=== PATIENT | female | born 1950 | race Caucasian/White ===

== ENCOUNTER → 2020-06-08 15:13 | Outpatient (BNVA) | payer MEDICARE, MEDICAID, SELFPAY | PROVIDERS: PCP Internal Medicine; Visit Provider Urology | DX: M54.5 Low back pain (principal); N20.0 Calculus of kidney | CPT/HCPCS: 81002; 99212 ==

== ENCOUNTER 2020-10-11 16:59 | Outpatient (REF) | payer MEDICARE, MEDICAID, SELFPAY ==
[2020-10-11 17:55] LABS: Hematocrit 44.2 % (37-47); Hemoglobin 14.4 g/dl (12.0-16.0); Mean Corpuscular HGB Conc 32.6 g/dl (31.0-35.0); Mean Corpuscular Volume 85.8 fL (80-98); Mean Platelet Volume 9.6 fL (9.4-12.3); Platelet Count 310 X10*3/uL (160-400); Red Blood Count 5.15 X10*6/uL (4.20-5.50); Red Cell Distribution Width 13.2 % (11.0-16.0); White Blood Count 9.6 X10*3/uL (4.8-10.8)
[2020-10-11 18:12] LABS: C Reactive Protein 0.29 mg/dL (< or = 0.50); Rheumatoid Factor < 15.0 IU/mL (<15.0)
[2020-10-11 19:04] LABS: Erythrocyte Sedimentation Rate 28 MM/HR (0-20)
[2020-10-15 15:16] LABS: Anti Nuclear Antibody Pattern Nuclear, Homogeneous; Anti Nuclear Antibody Screen POSITIVE (NEGATIVE)
[2020-10-16 08:11] LABS: Angiotensin Converting Enzyme 14 U/L (9-67)
[2020-10-18 06:27] LABS: Treponema pallidum Ab FTA ABS Nonreactive (Nonreactive)
== END 2020-10-11 17:00 | disposition home or self-care (01) ==
LOC: HO.LAB 16:59
PROVIDERS: PCP Internal Medicine; Visit Provider Ophthalmology
DX: H20.9 Unspecified iridocyclitis (principal)
CPT/HCPCS: 36415; 82164; 85027; 85652; 86038; 86039; 86140; 86431; 86780

== ENCOUNTER 2020-10-13 12:01 | Outpatient (REF) | payer MEDICARE, MEDICAID, SELFPAY ==
[2020-10-13 12:52] LABS: MANUAL DIFF FLAG NO
[2020-10-13 12:53] LABS: Basophils Percent Auto 0.4 % (0-2); Eosinophils Absolute Auto 0.1 X10*3/uL (0.0-0.4); Eosinophils Percent Auto 1.7 % (0-4); Hematocrit 41.2 % (37-47); Hemoglobin 13.3 g/dl (12.0-16.0); Imm Gran Abs Auto 0.03 X10*3/uL (0.00-0.03); Imm Gran Pct Auto 0.4 % (0.0-0.4); Lymphocytes Absolute Auto 2.1 X10*3/uL (1.2-4.9); Lymphocytes Percent Auto 27.5 % (20-40); Mean Corpuscular HGB Conc 32.3 g/dl (31.0-35.0); Mean Corpuscular Hemoglobin 27.9 pg (27.0-33.0); Mean Corpuscular Volume 86.4 fL (80-98); Mean Platelet Volume 9.7 fL (9.4-12.3); Monocytes Absolute Auto 0.6 X10*3/uL (0.1-1.2); Monocytes Percent Auto 8.4 % (2-11); Neutrophils Absolute Auto 4.6 X10*3/uL (2.0-8.3); Neutrophils Percent Auto 61.6 % (45-73); Platelet Count 294 X10*3/uL (160-400); Red Blood Count 4.77 X10*6/uL (4.20-5.50); Red Cell Distribution Width 13.2 % (11.0-16.0); White Blood Count 7.5 X10*3/uL (4.8-10.8)
[2020-10-13 13:14] LABS: C Reactive Protein 0.32 mg/dL (< or = 0.50)
[2020-10-13 13:22] LABS: Rheumatoid Factor < 15.0 IU/mL (<15.0)
[2020-10-13 13:53] LABS: Erythrocyte Sedimentation Rate 27 MM/HR (0-20)
[2020-10-17 11:27] LABS: TS Negative Control Passed; TS Panel A 0; TS Panel B 0; TS Positive Control Passed; TSpotTB Negative (SeeBelow)
[2020-10-17 14:42] LABS: Anti Nuclear Antibody Pattern Nuclear, Homogeneous; Anti Nuclear Antibody Screen POSITIVE (NEGATIVE)
[2020-10-18 23:26] LABS: Angiotensin Converting Enzyme 12 U/L (9-67)
[2020-10-21 17:56] LABS: Treponema pallidum Ab FTA ABS Nonreactive (Nonreactive)
== END 2020-10-13 12:02 | disposition home or self-care (01) ==
LOC: HO.LAB 12:01
PROVIDERS: PCP Internal Medicine; Visit Provider Ophthalmology
DX: H20.9 Unspecified iridocyclitis (principal)
CPT/HCPCS: 36415; 82164; 85025; 85652; 86038; 86039; 86140; 86431; 86481; 86780

== ENCOUNTER 2021-05-12 13:04 | Outpatient (REF) | payer MEDICARE, MEDICAID, SELFPAY ==
--- NOTE | ~2021-05-12 | MM_ITS ---
EXAMINATION: MM SCREENING DIGITAL BREAST TOMOSYNTHESIS, BILATERAL CLINICAL INFORMATION: Screening. Asymptomatic. The lifetime risk of breast cancer based on the Tyrer-Cuzick Model is 5%. COMPARISON: Mammography: 06/12/2018, 08/01/2016, 03/18/2015, 03/10/2015 ultrasound left breast 03/18/2015 TECHNIQUE: Digital breast tomosynthesis is performed in both the craniocaudal and mediolateral oblique views along with computer-aided detection (CAD). Synthesized 2D images are generated from the tomosynthesis. Additional left CC view is provided. FINDINGS: There are scattered areas of fibroglandular density (ACR BI-RADS breast composition Category b). There are no significant masses, abnormal calcifications, or other abnormalities. Cyst mid central 12:00 left breast has markedly regressed and no longer clearly visualized. There are scattered bilateral vascular calcifications. The axilla and skin contours are unremarkable. MM/MM tomosynthesis screening BI IMPRESSION: No mammographic evidence of malignancy. ASSESSMENT: BI-RADS 2: Benign RECOMMENDATION: Routine annual mammography screening. This patient's information was entered into a reminder system with a target due date for their next mammogram.
== END 2021-05-12 13:05 | disposition home or self-care (01) ==
LOC: HO.MAMMO 13:04
PROVIDERS: PCP Internal Medicine; Visit Provider Internal Medicine
DX: Z12.31 Encounter for screening mammogram for malignant neoplasm of breast (principal)
CPT/HCPCS: 77063; 77067

== ENCOUNTER → 2021-09-19 13:31 | Outpatient (BNVA) | payer MEDICARE, MEDICAID, SELFPAY | PROVIDERS: PCP Internal Medicine | DX: N20.0 Calculus of kidney (principal) | CPT/HCPCS: 99212 ==

== ENCOUNTER 2022-04-10 12:29 | Outpatient (REF) | payer MEDICARE, MEDICAID, SELFPAY ==
--- NOTE | ~2022-04-10 | US_ITS ---
EXAMINATION: US RETROPERITONEAL LIMITED (RENAL ONLY) CLINICAL INFORMATION: Calculus of kidney. COMPARISON: Renal ultrasound 06/03/2019 CT abdomen and pelvis 11/13/2017. TECHNIQUE: Real-time imaging of the kidneys. FINDINGS: RIGHT KIDNEY: 10.5 x 5.0 x 5.4 cm (SAG x AP x TRV). The kidney is normal in size, contour, and echogenicity. Renal cortical thickness is normal. No hydronephrosis. Benign-appearing renal cysts measuring up to 1.5 cm, no imaging follow-up recommended. A 3 mm nonobstructing lower pole right renal stone, new from prior. LEFT KIDNEY: 11.1 x 4.4 x 5.4 cm (SAG x AP x TRV). The kidney is normal in size, contour, and echogenicity. Renal cortical thickness is normal. No renal calculi or hydronephrosis. Benign-appearing renal cysts measuring up to 3.0 cm and likely benign 1.1 cm renal cyst with mural calcium, no follow-up imaging recommended. US/US renal BI IMPRESSION: A 3 mm nonobstructing right renal stone, new from prior.
== END 2022-04-10 12:30 | disposition home or self-care (01) ==
LOC: HO.US 12:29
DX: N20.0 Calculus of kidney (principal)
CPT/HCPCS: 76775

== ENCOUNTER → 2022-04-26 12:54 | Outpatient (BNVA) | payer MEDICARE, MEDICAID, SELFPAY | PROVIDERS: PCP Internal Medicine; Visit Provider Urology | DX: M54.50 Low back pain, unspecified (principal); N20.0 Calculus of kidney | CPT/HCPCS: 99212 ==

== ENCOUNTER 2023-03-25 12:49 | Outpatient (REF) | payer MEDICARE, MEDICAID, SELFPAY ==
--- NOTE | ~2023-03-25 | XR_ITS ---
EXAMINATION: XR CERVICAL SPINE CLINICAL INFORMATION: Cervicalgia COMPARISON: None available. TECHNIQUE: 6 views of the cervical spine, inclusive of flexion and extension views, were obtained. FINDINGS: There is straightening of cervical lordosis with marginal spurring and narrowing cough C4-C5, C5-C6 and C6-C7 intervertebral disc spaces with mild narrowing of neuroforamina bilaterally at the same level due to osteophytosis. Soft tissues are normal XR/XR cervical spine 5V IMPRESSION: Multilevel degenerative changes with neuroforaminal narrowing
[2023-03-25 13:13] LABS: MANUAL DIFF FLAG NO
[2023-03-25 13:50] LABS: Basophils Percent Auto 0.6 % (0-2); Eosinophils Absolute Auto 0.2 X10*3/uL (0.0-0.4); Eosinophils Percent Auto 2.6 % (0-4); Hematocrit 41.4 % (37.0-47.0); Hemoglobin 13.1 g/dl (12.0-16.0); Imm Gran Abs Auto 0.01 X10*3/uL (0.00-0.03); Imm Gran Pct Auto 0.2 % (0.0-0.4); Lymphocytes Absolute Auto 2.4 X10*3/uL (1.2-4.9); Lymphocytes Percent Auto 36.8 % (20-40); Mean Corpuscular HGB Conc 31.6 g/dl (31.0-35.0); Mean Corpuscular Hemoglobin 25.9 pg (27.0-33.0); Mean Corpuscular Volume 81.8 fL (80.0-98.0); Mean Platelet Volume 10.1 fL (9.4-12.3); Monocytes Absolute Auto 0.5 X10*3/uL (0.1-1.2); Monocytes Percent Auto 7.5 % (2-11); Neutrophils Absolute Auto 3.4 x10*3/uL (2.0-8.3); Neutrophils Percent Auto 52.3 % (45-73); Platelet Count 253 X10*3/uL (160-400); Red Blood Count 5.06 X10*6/uL (4.20-5.50); Red Cell Distribution Width 14.2 % (11.0-16.0); White Blood Count 6.5 X10*3/uL (4.8-10.8)
[2023-03-25 14:27] LABS: Alanine Aminotransferase 123 U/L (0-31); Albumin Level 4.1 g/dL (3.5-5.0); Alkaline Phosphatase 81 U/L (39-117); Anion Gap 10 (12-20); Aspartate Amino Transferase 102 U/L (5-31); Bilirubin Total 0.2 mg/dL (0.0-1.0); Blood Urea Nitrogen 21 mg/dL (9-16); Calcium 9.7 mg/dL (8.4-10.2); Carbon Dioxide 25 mmol/L (22-29); Chloride 109 mmol/L (96-108); Estimated Glomerular Filt Rate > 60; Glucose Random 109 mg/dL (60-115); Magnesium 2.2 mg/dL (1.6-2.6); Phosphorus 3.3 mg/dL (2.7-4.5); Potassium 4.3 mmol/L (3.3-5.1); Sodium 140 mmol/L (135-145)
[2023-03-25 14:33] LABS: Vitamin B12 378 pg/mL (200-900)
[2023-03-25 14:34] LABS: TSH reflex Free T4 1.55 uIU/mL (0.32-4.0)
== END 2023-03-25 12:50 | disposition home or self-care (01) ==
LOC: HO.XRAY 12:49
PROVIDERS: PCP Internal Medicine; Visit Provider Internal Medicine
DX: R25.2 Cramp and spasm (principal); R63.5 Abnormal weight gain; M54.2 Cervicalgia
CPT/HCPCS: 36415; 72050; 80053; 82607; 83735; 84100; 84443; 85025

== ENCOUNTER 2023-05-09 13:53 | Outpatient (REF) | payer MEDICARE, SELFPAY ==
--- NOTE | ~2023-05-09 | US_ITS ---
EXAMINATION: US RETROPERITONEAL LIMITED (RENAL ONLY) CLINICAL INFORMATION: Calculus of kidney. COMPARISON: Renal ultrasound 04/10/2022 and 06/03/2019. CT abdomen and pelvis without contrast 11/13/2017. TECHNIQUE: Real-time imaging of the kidneys. FINDINGS: RIGHT KIDNEY: 10.5 x 3.6 x 4.8 cm (SAG x AP x TRV). The kidney is normal in size, contour, and echogenicity. Renal cortical thickness is normal. No renal calculi or hydronephrosis. Previously seen calculus at the time of the prior 04/10/2022 ultrasound is not visualized on this exam. A benign upper pole 1.5 cm Bosniak class I renal cyst is noted which requires no additional imaging or follow up. No solid renal masses are seen. LEFT KIDNEY: 10.3 x 4.5 x 4.5 cm (SAG x AP x TRV). The kidney is normal in size, contour, and echogenicity. Renal cortical thickness is normal. No renal calculi or hydronephrosis. Multiple benign Bosniak class I and Bosniak class II renal cysts are noted. The largest measuring 3.5 cm is a Bosniak class II cyst with a single septation. All of these require no additional imaging or follow-up. No solid renal masses are seen. US/US renal BI IMPRESSION: 1. Bilateral benign Bosniak class I and Bosniak class II renal cysts which require no additional imaging or follow up. 2. No renal calculi are seen.
== END 2023-05-09 13:54 | disposition home or self-care (01) ==
LOC: HO.US 13:53
PROVIDERS: PCP Internal Medicine; Visit Provider Urology
DX: N20.0 Calculus of kidney (principal)
CPT/HCPCS: 76775

== ENCOUNTER 2023-06-28 14:57 | Outpatient (AMB) | payer MEDICARE, SELFPAY ==
--- NOTE | 2023-06-28 14:58 | A.OFFVIS_ITS ---
Intake Intake Visit Reasons: 1YR US(set) (confirmed) Intake Note: Patient presents today for telehealth follow-up Meds- Vitamin B6 Allergies to Antibiotic- No Known Allergies Blood Thinner- Aspirin Secretary To Board Of Commissioners Required: No Accompanied by: Self / Same As Patient Allergies tramadol [TRAMADOL] Allergy (Unknown, Verified 06/28/23 15:03) NAUSEA & VOMITING, vomiting, vomiting Medication List - Last Reconciled 06/28/23 by Reji Victoria MD aspirin 1 tab PO DAILY celecoxib 100 mg PO BID PRN clonazepam 0.5 mg PO BID PRN dorzolamide-timolol 22.3-6.8 mg/mL 1 drp ophthalmic-Right duloxetine 20 mg PO DAILY ibuprofen 800 mg PO Q8H PRN lidocaine 5% 1 patch topical DAILY loteprednol etabonate 0.5% 1 drp ophthalmic-Right TID meloxicam (Mobic) 15 mg PO DAILY 30 days omeprazole 20 mg PO DAILY pyridoxine (vitamin B6) 50 mg PO DAILY 90 days HPI HPI Comments History of Present Illness Details Angy NEUMANN is a very pleasant female. She is patient of Dr Neumann. They are seen in the office today for the following urologic conditions. - nephrolithiasis Telemedicine Evaluation 15 min Consultation Doximity Bouchra Video attempted Slovenian translation provided by qualified esthetician and manager medical spa Discussed ultrasound findings No evidence of stones She may follow-up on a p.r.n. basis as 5 years without stone recurrence Nephrolithiasis/Urolithiasis: Minimal stone left lower pole Follow yearly Remain on vitamin B6 Urolithiasis was diagnosed Long standing stone former ER [facility] [place] 11/13 - resolution of pain at visit. The patient previously had kidney stones whose composition w unknown. Laboratory investigations include 12/14 , Normocalcemia (9.0), Normal PTH, Normal uric acid. 24 Hour urine evaluation 12/14 , Low Urine volume < 2.0 liters, High Sodium (> 100mEq), Low citrate < 400 - , Low calcium < 200, Low Oxalate < 30 07/15 , Low Urine volume < 2.0 liters, Hypercalciuria (> 200mg), Low citrate < 400, Low Oxalate < 30. Prior treatment(s) include observation. Prior imaging includes 11/13 , a CT (computed tomography) scan of the abdomen/pelvis (stone protocol) - L 5mm renal stone, distal ureter 2mm stone with mild hydronephrosis 01/14 , a renal ultrasound, hydroneprhosis resolved 07/15 , a renal ultrasound, no stones 08/16 renal ultrasound, bilateral cysts, question of 2 mm left stone. - 04/19 renal ultrasound no evidence of stones - 05/22 renal ultrasound bilateral cysts, no evidence of stone Current therapeutic plan will be maintain fluid intake - renew Vit B6 - imaging in 12m Review of Systems Const All systems reviewed & are unremarkable except as noted in HPI and below Reports no additional complaints Resp Reports no additional complaints GI Reports no additional complaints Reports as per HPI Musc Reports no additional complaints Physical Exam Telemedicine evaluation Appropriate responses Regular breathing rate and rhythm HEENT Head: Yes normal to inspection Ears: hearing grossly normal bilaterally Eyes General: appearance normal, both eyes and all related structures Neck Neck: Yes normal visual inspection Chest Chest palpation & inspection: normal inspection of the chest Resp Effort & Inspection: normal respiratory effort and able to speak in complete sentences Assessment & Plan Assessment & Plan (1) Lower back pain: Code(s): M54.5 - Low back pain (2) Nephrolithiasis: Code(s): N20.0 - Calculus of kidney Plan P.r.n. follow-up Medications: Changed From pyridoxine (vitamin B6) 100 mg PO DAILY 90 days 90 tabs 3RF N20.0 - Calculus of kidney To pyridoxine (vitamin B6) 50 mg PO DAILY 90 days 90 tabs 3RF N20.0 - Calculus of kidney Patient Instructions: Imaging studies, laboratory and physical exam results were discussed and reviewed in detail. No major barriers to patient understanding were identified. An opportunity to ask questions regarding the treatment plan was provided. All questions were answered. The patient expressed understanding and agreement with the above treatment plan. The patient is aware they should contact our office by phone for worsening of their current condition or the appearance of new urologic symptoms. Compliance is encouraged with any medications and followup testing that is ordered. It is a privilege to participate in the urologic care of your patient. If you have any questions or concerns regarding treatment for the above conditions, or other urologic issues, please do not hesitate to contact me. The office telephone contact is [phone]. This note is constructed using voice recognition software. While every effort has been made to ensure accuracy planning engineer errors may have been included. Yours sincerely, Dr Reji Victoria MD, [facility] - Urology Providers of Expert, Compassionate Care for the Genitourinary System Telehealth Telehealth Location of provider rendering services: practice address Location of patient: address on file Patient Identification confirmed using: Name, : Yes Telehealth method: video Patient verbally consented to treatment: Yes Patient verbally consented to billing insurance company: Yes Patient informed of any privacy concerns related to visit: Yes Coding Level of Care Code Tele Est Pt Level 4 (72066) Diagnoses Lower back pain M54.5 Nephrolithiasis N20.0
== END 2023-06-28 15:25 | disposition home or self-care (01) ==
LOC: HO.HUSH 14:58
PROVIDERS: PCP Internal Medicine; Visit Provider Urology
DX: M54.50 Low back pain, unspecified (principal); N20.0 Calculus of kidney
CPT/HCPCS: 99213

== ENCOUNTER → 2023-06-28 14:57 | Outpatient (BNVA) | payer MEDICARE, SELFPAY | PROVIDERS: PCP Internal Medicine; Visit Provider Urology ==

== ENCOUNTER 2023-07-18 14:25 | Outpatient (REF) | payer MEDICARE, SELFPAY | END 2023-07-18 14:26 | disposition home or self-care (01) | LOC: HO.MAMMO 14:25 | PROVIDERS: PCP Internal Medicine; Visit Provider Internal Medicine | DX: Z12.31 Encounter for screening mammogram for malignant neoplasm of breast (principal) | CPT/HCPCS: 77063; 77067 ==

== ENCOUNTER → 2023-07-18 14:30 | Outpatient (BNV) | payer MEDICARE, SELFPAY | PROVIDERS: PCP Internal Medicine; Visit Provider Radiology Diagnostic Radiology | DX: Z12.31 Encounter for screening mammogram for malignant neoplasm of breast (principal) | CPT/HCPCS: 77063; 77067 ==

== ENCOUNTER 2023-11-25 13:13 | Outpatient (REF) | payer MEDICARE, SELFPAY ==
[2023-11-25 13:26] VITALS: BP 150/79; PULSE 76; RESP 16; TEMP 36.7; O2SAT 96; BMI 34.9
[2023-11-25 14:05] VITALS: BMI 34.7
== END 2023-11-25 13:14 | disposition home or self-care (01) ==
LOC: HO.MS 13:13
PROVIDERS: PCP Internal Medicine; Visit Provider Ophthalmology
PROC: (CPT 66821; principal; 2023-11-25 14:40)
DX: H26.491 Other secondary cataract, right eye (principal)
CPT/HCPCS: 66821

== ENCOUNTER 2023-12-02 12:55 | Outpatient (REF) | payer MEDICARE, SELFPAY ==
[2023-12-02 13:27] VITALS: BP 161/79; PULSE 80; RESP 16; TEMP 36.2; O2SAT 95; BMI 22.9
== END 2023-12-02 12:56 | disposition home or self-care (01) ==
LOC: HO.MS 12:55
PROVIDERS: PCP Internal Medicine; Visit Provider Ophthalmology
PROC: (CPT 66821; principal; 2023-12-02 14:00)
DX: H26.492 Other secondary cataract, left eye (principal)
CPT/HCPCS: 66821

== ENCOUNTER 2024-07-28 10:15 | Outpatient (REF) | payer MEDICARE, SELFPAY ==
[2024-07-28 11:38] LABS: Blood Urea Nitrogen 18 mg/dL (9-16); Estimated Glomerular Filt Rate > 60
--- OUTSIDE RECORDS SUMMARY | 2024-07-28 12:53 | XMS_ITS ---
Author Organization [facility] on Care Team Providers Care Stevedoring Superintendent Name Role Phone Shilpi Crump Unavailable Unavailable Yumiko Mcnamara Unavailable Unavailable Mercy Thakkar Unavailable Unavailable Sofi Russell Unavailable Unavailable Khalida Reis Unavailable Unavailable Remedios Fischer Unavailable Unavailable Allergies and adverse reactions No Known Allergies Care Team Name Role Address Phone Organization Dates Mercy Thakkar PCP [address] [place] [address], [address], [place] (Office): : [facility] 02/12/2022 - 02/23/2022 Shilpi Crump Attending Physician [address] [place], [address], [place] (Office): [phone] [facility] 02/12/2022 - 02/23/2022 Yumiko Mcnamara Attending Physician [address] [place], [address], [place] (Office): [facility] 02/12/2022 - 02/23/2022 Sofi Russell Attending Physician [address] [place], [address], [place] (Office): [facility] 02/12/2022 - 02/23/2022 Khalida Reis Attending Physician [address] [place], [address], [place] (Office): [facility] 02/12/2022 - 02/23/2022 Remedios Fischer Attending Physician [address] [place], [address], [place] (Office): : [facility] 02/12/2022 - 02/23/2022 Immunizations Immunization Status Vaccine Details Vaccine Code CodeSystem Rob e Notes SARS-COV-2 (COVID-19) completed SARS-COV-2 (COVID-19) vaccine, mRNA, spike protein, LNP, preservative free, 30 mcg/0.3mL dose, marivel-sucrose formulation Mfg: [employer] Step 2 of Multi-step with next step required 217 CVX created date: 02/12/2022 administered date: 08/04/2020 SARS-COV-2 (COVID-19) completed SARS-COV-2 (COVID-19) vaccine, mRNA, spike protein, LNP, preservative free, 30 mcg/0.3mL dose, marivel-sucrose formulation Mfg: [employer] Step 1 of Multi-step with next step [...] 1 AFTERCARE FOLLOWING JOINT REPLACEMENT SURGERY 02/12/[address] active 2 ANXIETY DISORDER, UNSPECIFIED 02/12/[address] active 3 CALCULUS OF KIDNEY 02/12/[address] active 4 GASTRO-ESOPHAGEAL REFLUX DISEASE WITHOUT ESOPHAGITIS 02/12/[address] active 5 MAJOR DEPRESSIVE DISORDER, RECURRENT, UNSPECIFIED 02/12/[address] active 6 OBESITY, UNSPECIFIED 02/12/[address] active 7 UNILATERAL PRIMARY OSTEOARTHRITIS, LEFT KNEE 02/12/[address] active Reason for Referral No Reasons for Referral Entered Social History Social History Observation Description Start Date End Date Code Code System Current Smoking Status Tobacco smoking consumption unknown 769223161 SNOMED CT Sex Assigned At Female 1950 [address]-1 [facility] Vital Signs Code Code System Vitals Name Values and Units Timing Information 95642-9 [facility] Pain Level Value=0.0 02/23/2022 9279-1 [facility] Respiratory Rate Value=18.0 Units=/m in 02/23/2022 8462-4 [facility] Blood Pressure-Diastolic Value=72 Un its=mmHg 02/23/2022 8480-6 INC Blood Pressure-Systolic Ikelk=589 Un its=mmHg 02/23/2022 8310-5 [facility] Body Temperature Value=97.8 Units=?? F 02/23/2022 8867-4 [facility] Heart rate Value=71.0 Units=/min 32978-1 [facility] O2 % BldC Oximetry Value=97.0 Units= % 02/23/2022 58381-9 [facility] Weight Jsszv=646.0 Units=Lbs 8302-2 [facility] Height Value=61.0 Units=Inches 02/14/2022
== END 2024-07-28 10:16 | disposition home or self-care (01) ==
LOC: HO.LAB 10:15
PROVIDERS: PCP Internal Medicine; Referring Provider Internal Medicine; Visit Provider Surgery
DX: K40.90 Unilateral inguinal hernia, without obstruction or gangrene, not specified as recurrent (principal); K43.9 Ventral hernia without obstruction or gangrene
CPT/HCPCS: 36415; 82565; 84520; 99202

== ENCOUNTER 2024-07-28 10:15 | Outpatient (AMB) | payer MEDICARE, SELFPAY ==
[2024-07-28 10:16] VITALS: BP 130/73; PULSE 79; O2SAT 96; BMI 32.3
--- NOTE | 2024-07-28 10:16 | A.OFFVIS_ITS ---
Vital Signs 07/28/24 10:16 Height 5 ft 2 in Weight 176 lb 5.917 oz BMI 32.3 BP 130/73 Blood Pressure Location Lt brachial Position Sitting Pulse 79 Pulse Source Pulse Oximeter Pulse Oximetry (%) 96 Oxygen Delivery Method Room Air Intake Visit Reasons: hernia Intake Note: Patient referred by Dr. Pietro Neumann/ Josy Watson for hernia on abdominal wall. Patient c/o: ocassional pain, and protrusion. Allergies tramadol [TRAMADOL] Allergy (Unknown, Verified 07/28/24 10:18) NAUSEA & VOMITING, vomiting, vomiting HPI Comments Details: Patient presents with what she thinks are hernias. She was seen by a surgeon many years ago and was told that she had a right inguinal hernia. He also has a question of an upper midline hernia. Patient was status post l exploratory laparotomy many years ago for trauma. She otherwise tolerating a diet. She was regular bowel habits. She seems to have was is described as reflux symptoms which of the groin related to hernia. Chart was reviewed and patient evaluate [facility] Social History (Updated 07/28/24 @ 10:20 by Reta Patel [facility]) Housing: Apartment Alcohol intake: never Patient Tobacco Use Status: Never used Tobacco Use of substances other than those prescribed or required for medical reasons: No Physical Exam Vital Signs: Last Vital Signs Pulse 79 07/28/24 10:16 BP 130/73 07/28/24 10:16 Pulse Ox 96 07/28/24 10:16 Oxygen Delivery Method Room Air 07/28/24 10:16 BMI result Body Mass Index 32.3 GI Other: Patient was examined both supine and standing with Valsalva. Very corpulent abdomen. Large extensive right paramedian scar/old incision from patient's previous laparotomy. Upper midline question of a incisional hernia but somewhat challenging secondary to the patient's size. Also question of a right inguinal hernia. Assessment & Plan Assessment & Plan (1) Ventral hernia: Code(s): K43.9 - Ventral hernia without obstruction or gangrene Category: Surgical (2) Right inguinal hernia: Code(s): K40.90 - Unilateral inguinal hernia, without obstruction or gangrene, not specified as recurrent Category: Surgical Plan Because of the marked corpulent with the patient was abdomen, and to rule out several hernias prior to undergoing repair of any of these, current plan is to arrange for CT scan abdomen pelvis indirect further therapy based on these results. Patient understands. All questions answered. She will see me after the scan. Coding Level of Care Code New Pt Level 4 (79852) Diagnoses Ventral hernia K43.9 Right inguinal hernia K40.90
--- OUTSIDE RECORDS SUMMARY | 2024-07-28 12:01 | XMS_ITS ---
Author Organization [facility] on Care Team Providers Care Principal Web Developer Name Role Phone Shilpi Crump Unavailable Unavailable Yumiko Mcnamara Unavailable Unavailable Mercy Thakkar Unavailable Unavailable Sofi Russell Unavailable Unavailable Khalida Reis Unavailable Unavailable Remedios Fischer Unavailable Unavailable Allergies and adverse reactions No Known Allergies Care Team Name Role Address Phone Organization Dates Mercy Thakkar PCP [address] [place] [address], [address], [place] (Office): : [facility] 02/12/2022 - 02/23/2022 Shilpi Crump Attending Physician [address] [place], [address], [place] (Office): [phone] [facility] 02/12/2022 - 02/23/2022 Yumiko Mcnamara Attending Physician [address] [place], [address], [place] (Office): [facility] 02/12/2022 - 02/23/2022 Sofi Russell Attending Physician [address] [place], [address], [place] (Office): [facility] 02/12/2022 - 02/23/2022 Khalida Reis Attending Physician [address] [place], [address], [place] (Office): [facility] 02/12/2022 - 02/23/2022 Remedios Fischer Attending Physician [address] [place], [address], [place]Office): : [facility] 02/12/2022 - 02/23/2022 Immunizations Immunization Status Vaccine Details Vaccine Code CodeSystem Rob e Notes SARS-COV-2 (COVID-19) completed SARS-COV-2 (COVID-19) vaccine, mRNA, spike protein, LNP, preservative free, 30 mcg/0.3mL dose, marivel-sucrose formulation Mfg: [employer] Step 2 of Multi-step with next step required 217 CVX created date: 02/12/2022 administered date: 08/04/2020 SARS-COV-2 (COVID-19) completed SARS-COV-2 (COVID-19) vaccine, mRNA, spike protein, LNP, preservative free, 30 mcg/0.3mL dose, marivel-sucrose formulation Mfg: [employer] Step 1 of Multi-step with next step required 217 CVX created date: 02/12/2022 administered date: 07/08/2020 SARS-COV-2 (COVID-19 BOOSTER) completed SARS-COV-2 (COVID-19) vaccine, mRNA, spike protein, LNP, preservative free, 50 mcg/0.5 mL dose Mfg: Moderna 221 CVX created date: 02/12/2022 administered date: 04/07/2021 Mental Status Section Date Assessment Total Score Description 02/23/2022 BIMS 13 cognitively int act CAM 0 No delirium ind icated PHQ-9 02 minimal depress ion 02/18/2022 BIMS 13 cognitively int act CAM 0 No delirium ind icated PHQ-9 03 minimal depress ion Problems Problem # Description Date of onset Resolved Date Code CodeSystem Concern Status 1 AFTERCARE FOLLOWING JOINT REPLACEMENT SURGERY 02/12/[address] active 2 ANXIETY DISORDER, UNSPECIFIED 02/12/[address] active 3 CALCULUS OF KIDNEY 02/12/[address] active 4 GASTRO-ESOPHAGEAL REFLUX DISEASE WITHOUT ESOPHAGITIS 02/12/[address] active 5 MAJOR DEPRESSIVE DISORDER, RECURRENT, UNSPECIFIED 02/12/[address] active 6 OBESITY, UNSPECIFIED 02/12/[address] active 7 UNILATERAL PRIMARY OSTEOARTHRITIS, LEFT KNEE 02/12/[address] active Reason for Referral No Reasons for Referral Entered Social History Social History Observation Description Start Date End Date Code Code System Current Smoking Status Tobacco smoking consumption unknown 424674450 SNOMED CT Sex Assigned At Female 1950 [address]-5 [facility] Vital Signs Code Code System Vitals Name Values and Units Timing Information 69294-7 [facility] Pain Level Value=0.0 02/23/2022 9279-1 [facility] Respiratory Rate Value=18.0 Units=/m in 02/23/2022 8462-4 [facility] Blood Pressure-Diastolic Value=72 Un its=mmHg 02/23/2022 8480-6 INC Blood Pressure-Systolic Zolso=315 Un its=mmHg 02/23/2022 8310-5 [facility] Body Temperature Value=97.8 Units=?? F 02/23/2022 8867-4 [facility] Heart rate Value=71.0 Units=/min 05954-8 [facility] O2 % BldC Oximetry Value=97.0 Units= % 02/23/2022 92385-8 [facility] Weight Yalcu=212.0 Units=Lbs 8302-2 [facility] Height Value=61.0 Units=Inches 02/14/2022
== END 2024-07-28 10:36 | disposition home or self-care (01) ==
LOC: HO.HGS 10:16
PROVIDERS: PCP Internal Medicine; Referring Provider Internal Medicine; Visit Provider Surgery
DX: K43.9 Ventral hernia without obstruction or gangrene (principal); K40.90 Unilateral inguinal hernia, without obstruction or gangrene, not specified as recurrent
CPT/HCPCS: 99204

== ENCOUNTER 2024-10-05 13:28 | Outpatient (REF) | payer MEDICARE, SELFPAY ==
[2024-10-05 14:13] LABS: Blood Urea Nitrogen 22 mg/dL (9-16); Estimated Glomerular Filt Rate > 60
== END 2024-10-05 13:29 | disposition home or self-care (01) ==
LOC: HO.LAB 13:28
PROVIDERS: PCP Internal Medicine; Visit Provider Surgery
DX: K43.9 Ventral hernia without obstruction or gangrene (principal)
CPT/HCPCS: 36415; 82565; 84520

== ENCOUNTER 2024-11-29 14:07 | Emergency (ER) | payer OTHER, SELFPAY ==
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
[2024-11-29 14:12] VITALS: BP 138/75; PULSE 88; RESP 18; TEMP 36.6; O2SAT 98; BMI 32.2
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
[2024-11-29] MEDS: Lidocaine 4 % Patch ADH..PATCH 1 PATCH TRANSDERMA (16:24)
[2024-11-29 16:27] VITALS: BP 129/64; PULSE 66; RESP 17; TEMP 36.1; O2SAT 99
[2024-11-29 16:36] VITALS: BP 129/64; PULSE 66; RESP 17; TEMP 36.1; O2SAT 99
--- NOTE | 2024-11-29 16:36 | PC.NURSE ---
pt medicated prior to d/c.
== END 2024-11-29 16:36 | disposition home or self-care (01) ==
PROVIDERS: Emergency Provider Emergency Medicine; PCP Internal Medicine
DX: R52 Pain, unspecified (principal); V89.2XXA Person injured in unspecified motor-vehicle accident, traffic, initial encounter; Y93.9 Activity, unspecified; Y92.9 Unspecified place or not applicable; Y99.9 Unspecified external cause status
CPT/HCPCS: 70450; 71046; 73521; 99284

== ENCOUNTER → 2024-11-29 14:21 | Outpatient (BNV) | payer MEDICARE, MEDICAID, SELFPAY | PROVIDERS: PCP Internal Medicine; Visit Provider Radiology Diagnostic Radiology | DX: R51.9 Headache, unspecified (principal); M25.559 Pain in unspecified hip; R07.89 Other chest pain | CPT/HCPCS: 70450; 71046; 73521 ==

== ENCOUNTER 2025-04-01 12:35 | Outpatient (REF) | payer MEDICARE, MEDICAID, SELFPAY ==
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
[2025-04-01] MEDS: iohexoL 350 MG/ML 100 ML INFUS..BTL 85 ML IV (13:49)
[2025-04-01 15:38] LABS: Creatinine POC 0.8 mg/dL (0.5-1.4); GFR POC > 60
== END 2025-04-01 12:36 | disposition home or self-care (01) ==
LOC: HO.CT 12:35
PROVIDERS: PCP Internal Medicine; Visit Provider Surgery
DX: K43.9 Ventral hernia without obstruction or gangrene (principal); K40.90 Unilateral inguinal hernia, without obstruction or gangrene, not specified as recurrent
CPT/HCPCS: 74177; 82565; Q9967

== ENCOUNTER → 2025-04-01 12:36 | Outpatient (BNV) | payer MEDICARE, MEDICAID, SELFPAY | PROVIDERS: PCP Internal Medicine; Visit Provider Radiology Diagnostic Radiology | DX: N28.1 Cyst of kidney, acquired (principal); K76.0 Fatty (change of) liver, not elsewhere classified; R16.0 Hepatomegaly, not elsewhere classified; I70.90 Unspecified atherosclerosis | CPT/HCPCS: 74177 ==